=== PATIENT | female | born 1970 | race Caucasian/White ===

== ENCOUNTER 2020-05-03 14:39 | Emergency (ER) | payer BC ==
--- OUTSIDE RECORDS SUMMARY | 2020-05-03 14:42 | XMS REPORT | Continuity of Care Document ---
:1970 Author Organization [facility] t Address [address] [place] [address] Care Team Providers Name Role Phone Jacoby GARNER Primary Care Physician Jasson GARNER, R. Attending Clinician Monserrat GARNER Attending Clinician Angie GARNER Attending Clinician Payers Payer Name Policy Type Policy Effective Date Expiration Date Sour ce Number [id number] CHOICE [id number] 2015 [place] PPO/FEDERAL 00:00:00 Islam EMPL [id number] 2015-Pres entPPO Problems Condition Condition Condition Status Onset Resolution Last Treating Co mments Source Name Details Category Date Date Treatment Clinician Date Trochanter Trochanter Disease Active H jacqueston ic ic 03-11 [facility] tendinitis tendinitis 00:00: st 00 Skin rash Skin rash Disease Active Jovany ston 03-11 Methodi 00:00: st 00 FH: FH: Disease Active [place] hypothyroi hypothyroi 4-11 Me [facility] dism dism 00:00: st 00 SLE SLE Disease Active [place] (systemic (systemic 2-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 00:00: st erythemato erythemato 00 raina) raina) Long-term Long-term Disease Active Jovany ston use of use of 10-01 [facility] Plaquenil Plaquenil 00:00: st 00 Vidya' Vidya' Disease Active H cesia s s -24 [facility] thyroiditi thyroiditi 00:00: st s s 00 SOB SOB Disease Active [place] (shortness (shortness 1-10 Me th[place] of breath) of breath) 00:00: st 00 Essential Essential Disease Active Jovany ston hypertensi hypertensi 1-10 Me [facility] on on 00:00: st 00 Palpitatio Palpitatio Disease Active H cesia n n 1-10 Methodi 00:00: st 00 Paresthesi Paresthesi Disease Active 2015-08 H cesia a a 09-11 Methodi 00:00: st 00 Arthralgia Arthralgia Disease Active 2015-08 H jacqueston of both of both 09-11 [facility] hands hands 00:00: st 00 Raynaud's Raynaud's Disease Active 2015-08 Jovany ston phenomenon phenomenon 2- Me thodi without without 00:00: st gangrene gangrene 00 Sicca Sicca Disease Active 2015-08 [place] syndrome syndrome 09-11 Method i 00:00: st 00 Rash Rash Disease Active 2015-08 [place] 09-11 Methodi 00:00: st 00 Muscle Muscle Disease Active [place] weakness weakness Method i st Myopathy Myopathy Disease Active st Allergies, Adverse Reactions, Alerts Allergy Allergy Status Severity Reaction(s) Onset Inactive Treating Comm ents Source Name Type Date Date Clinician Joce Propensi Active 2015-08 [place] Inhibito ty to 09-11 Methodi rs adverse 00:00: st reaction 00 s to drug Arb-Karen Propensi Active 2015-08 [facility] to 09-11 Methodi Receptor adverse 00:00: st Antagoni reaction 00 st s to drug Family History Family Member Diagnosis Comments Start Date Stop Date Source Paternal grandmother Gait disorder H cesia Islam Social History Social Habit Start Date Stop Date Quantity Comments Source Sex Assigned At [facility] ethodist Tobacco use and 2019-07-14 2019-07-14 Never used [facility] ethodist exposure 00:00:00 00:00:00 Alcohol intake 2019-07-14 2019-07-14 Current drinker [place] [facility] 00:00:00 00:00:00 of alcohol (finding) Alcohol Comment 2016-07-11 2016-07-11 once every 2 [place] Islam 00:00:00 00:00:00 months Smoking Status Start Date Stop Date Source Current every day smoker 2019-07-14 00:00:00 Jovany mcconnell Islam Medications Ordered Filled Start Stop Current Ordering Indication Dosage Frequency Signature Comments Components Source Medication Medication Date Date Medication? Clinician (SIG) Name Name rosuvastati Yes Hyperlipide TAKE 1 [place] n (CRESTOR) 6-09 bennett, TABLET BY hodi 10 mg 00:00: unspecified MOUTH st tablet 00 hyperlipide DAILY bennett type hydroxychlo Yes Paresthesia TAKE 2 [place] roquine 3-30 TABLETS BY Method i (PLAQUENIL) 00:00: MOUTH st 200 mg 00 DAILY tablet rosuvastati 2020- No Hyperlipide TAKE 1 [place] n (CRESTOR) 3-16 06-09 bennett, TABLET BY Me thodi 10 MG 00:00: 00:[address] tablet 00 :00 hyperlipide DAILY bennett type hydroxychlo 2020- No Paresthesia TAKE 2 [place] roquine 3-16 03-30 TABLETS(40 Metho di (PLAQUENIL) 00:00: 00:00 0 MG) BY s t 200 mg 00 :00 MOUTH tablet DAILY hydroxychlo 2018-08 2020- No Paresthesia TAKE 2 [place] roquine 1-26 03-16 TABLETS(40 Metho di (PLAQUENIL) 00:00: 00:00 0 MG) BY s t 200 mg 00 :00 MOUTH tablet DAILY rosuvastati 2018-08 2020- No Hyperlipide TAKE 1 [place] n (CRESTOR) 1-25 03-16 bennett, TABLET BY Me thodi 10 MG 00:00: 00:[address] tablet 00 :00 hyperlipide DAILY bennett type nebivolol 2018-08 2019- No 2.5mg Q24H Take 2.5 [place] (BYSTOLIC) 1-05 11-05 mg by Methodi 2.5 MG 14:28: 00:[address] tablet 39 :00 daily as needed. LORAZepam 2018-08 Yes .5mg Q6H Take 0.5 [place] (ATIVAN) 1-05 mg by Methodi 0.5 MG 14:04: mouth st tablet 08 every 6 (six) hours as needed. Prn for anxiety omega 2018-08 Yes 1{tbl} Take 1 [place] 3-dha-epa-f 1-05 tablet by Met zuñiga charlene oil 14:04: mouth as st 120-180-600 08 needed. mg capsule cholecalcif 2018-08 Yes 2000U QD Take 2,000 [place] renetta, 1-05 Units by Methodi vitamin D3, 14:04: mouth st (VITAMIN 08 daily. D3) 2,000 unit capsule capsule B complex 2018-08 Yes QD Take by [place] on with 1-05 mouth Methodi C#20-folic 14:04: daily. st acid 1 mg 08 capsule TURMERIC 2018-08 Yes Take by Olivier hong ROOT 1-05 mouth Methodi EXTRACT 14:04: daily. st ORAL 08 ASCORBATE 2018-08 Yes Take by [place] on CALCIUM 1-05 mouth Methodi (VITAMIN C 14:04: daily. st ORAL) 08 MAGNESIUM 2018-08 Yes Take by [place] on CITRATE 1-05 mouth Methodi ORAL 14:04: daily. st 08 nebivolol 2018-08 Yes 5mg QD [facility] -[facility] tablet (5 Meth donal 5 MG tablet 00:00: mg total) s t 00 by mouth daily. hydroxychlo 2018- No Paresthesia TAKE 2 [place] roquine 04-05-25 TABLETS(40 Metho di (PLAQUENIL) 00:00: 00:00 0 MG) BY s t 200 mg 00 :00 MOUTH tablet DAILY rosuvastati 2018- No Hyperlipide TAKE 1 [place] n (CRESTOR) 04-05- bennett, TABLET BY [place] alireza 10 MG 00:00: 00:[address] tablet 00 :00 hyperlipide DAILY bennett type Vital Signs Vital Name Observation Time Observation Value Comments Source Systolic blood 2019-07-14 14:16:00 143 mm[Hg] Olivier hong Islam pressure Diastolic blood 2019-07-14 14:16:00 86 mm[Hg] [place] Islam pressure Heart rate 2019-07-14 14:16:00 88 /min Neo Sheriff Body weight 2019-07-14 14:16:00 88.451 kg Neo Sheriff BMI 2019-07-14 14:16:00 32.45 kg/m2 Neo Sheriff Body height 2019-06-15 14:03:00 165.1 cm Neo Sheriff Procedures Procedure Date / Time Performed Performing Clinician [facility] e ECG 12-LEAD 2019-06-15 14:04:15 Gregorio Spaulding odbrooke Plan of Care Planned Activity Planned Date Details Comments Source Future Scheduled 2020-04-11 INFLUENZA VACCINE [place] Islam Test 00:00:00 [code = INFLUENZA VACCINE] Future Scheduled 1993-02-19 Screening for Neo Me thodist Test 00:00:00 malignant neoplasm of cervix (procedure) [code = 374367740] Results Test Description Test Time Test Comments Results Result Comments Source ECG 12 lead 2019-06-15 15:48:37 Test Item Value Reference Range Interpretation Comme nts Ventricular rate (test code = 253) 77 Atrial rate (test code = 255) 77 AR interval (test code = 266) 146 QRSD interval (test code = 260) 100 QT interval (test code = 264) 392 QTC interval (test code = 265) 443 P axis 1 (test code = 267) 67 QRS axis 1 (test code = 268) 77 T wave axis (test code = 270) 53 EKG impression (test code = 273) Normal sinus rhythm-Normal ECG-In automated comparison with ECG of 02-SEP-2017 13:09,-No significant change was found- Neo Sheriff
--- OUTSIDE RECORDS SUMMARY | 2020-05-03 14:42 | XMS REPORT | Clinical Summary ---
:1970 Author Organization [facility] Address [address] [place] [address] Care Team Providers Name Role Phone MD Jacoby Primary Care Provider Allergies Active Allergy Reactions Severity Noted Date Comments Joce Inhibitors 07/11/2016 Arb-Angiotensin Receptor Antagonist 07/11 Medications Medication Sig Dispensed Refills Start End Date Status Date LORAZepam (ATIVAN) 0.5 Take 0.5 mg 0 Active MG tablet by mouth every 6 (six) hours as needed. Prn for anxiety omega 5-bge-aud-fish Take 1 0 Active oil 120-180-600 mg tablet by capsule mouth as needed. cholecalciferol, Take 2,000 0 Ac tive vitamin D3, (VITAMIN Units by D3) 2,000 unit capsule mouth capsule daily. B complex with Take by 0 Activ e C#20-folic acid 1 mg mouth capsule daily. TURMERIC ROOT EXTRACT Take by 0 Active ORAL mouth daily. ASCORBATE CALCIUM Take by 0 Ac tive (VITAMIN C ORAL) mouth daily. MAGNESIUM CITRATE ORAL Take by 0 Active mouth daily. nebivolol (BYSTOLIC) 5 Take 1 90 tablet 3 Active MG tablet tablet (5 9 mg total) by mouth daily. hydroxychloroquine TAKE 2 180 tablet 0 Active (PLAQUENIL) 200 mg TABLETS BY 0 tabletIndications: MOUTH DAILY Other systemic lupus erythematosus with other organ involvement (HCC), Raynaud's phenomenon without gangrene, Long-term use of Plaquenil, Paresthesia rosuvastatin (CRESTOR) TAKE 1 90 tablet 0 Active 10 mg TABLET BY 0 tabletIndications: MOUTH DAILY Hyperlipidemia, unspecified hyperlipidemia type nebivolol (BYSTOLIC) Take 2.5 mg 0 0 Discontinued 2.5 MG tablet by mouth 19 (Formu abundio daily as change) needed. hydroxychloroquine TAKE 2 180 tablet 0 07/05/20 Discontinued (PLAQUENIL) 200 mg TABLETS(400 9 19 (Reorder) tabletIndications: MG) BY Other systemic lupus MOUTH DAILY erythematosus with other organ involvement (HCC), Raynaud's phenomenon without gangrene, Long-term use of Plaquenil, Paresthesia rosuvastatin (CRESTOR) TAKE 1 90 tablet 0 0 Discontinued 10 MG TABLET BY 9 19 (Reorder) tabletIndications: MOUTH DAILY Hyperlipidemia, unspecified hyperlipidemia type rosuvastatin (CRESTOR) TAKE 1 90 tablet 0 0 Discontinued 10 MG TABLET BY 9 20 tabletIndications: MOUTH DAILY Hyperlipidemia, unspecified hyperlipidemia type hydroxychloroquine TAKE 2 180 tablet 0 10/25/19 Discontinued (PLAQUENIL) 200 mg TABLETS(400 9 20 tabletIndications: MG) BY Other systemic lupus MOUTH DAILY erythematosus with other organ involvement (HCC), Raynaud's phenomenon without gangrene, Long-term use of Plaquenil, Paresthesia hydroxychloroquine TAKE 2 180 tablet 0 11/08/19 Discontinued (PLAQUENIL) 200 mg TABLETS(400 0 20 tabletIndications: MG) BY Other systemic lupus MOUTH DAILY erythematosus with other organ involvement (HCC), Raynaud's phenomenon without gangrene, Long-term use of Plaquenil, Paresthesia rosuvastatin (CRESTOR) TAKE 1 90 tablet 0 0 Discontinued 10 MG TABLET BY 0 20 tabletIndications: MOUTH DAILY Hyperlipidemia, unspecified hyperlipidemia type Active Problems Problem Noted Date Trochanteric tendinitis 03/11/2017 Skin rash 03/11/2017 FH: hypothyroidism 11/19/2016 SLE (systemic lupus erythematosus) 10/01/2016 Long-term use of Plaquenil 10/01/2016 Vidya's thyroiditis 09/03/2016 SOB (shortness of breath) 08/20/2016 Essential hypertension 08/20/2016 Palpitation 08/20/2016 Paresthesia 07/11/2016 Arthralgia of both hands 07/11/2016 Raynaud's phenomenon without gangrene 07/11/2016 Sicca syndrome 07/11/2016 Rash 07/11/2016 Muscle weakness Myopathy Encounters Date Type Specialty Care Team Description 01/18/2020 Refill Cardiology Gregorio Spaulding MD Med Refi ll 11/05/2019 Refill Rheumatology Sangeetha German MD Other syste josette lupus erythematosus with other organ involvement (HCC); Raynaud's pheno blanche without gangrene; Long-term use o f Plaquenil; Paresthesia 10/25/2019 Refill Cardiology Gregorio Spaulding MD Med Refi ll 10/25/2019 Refill Rheumatology Sangeetha German MD Other syste josette lupus erythematosus with other organ involvement (HCC); Raynaud's pheno blanche without gangrene; Long-term use o f Plaquenil; Paresthesia 07/14/2019 Office Visit Neurology Yahaira Adams MD Numbness and tingling sensation of skin (Primary Dx); Anxiety with so matization 07/05/2019 Refill Rheumatology Sangeetha German MD Other syste josette lupus erythematosus with other organ involvement (HCC); Raynaud's pheno blanche without gangrene; Long-term use o f Plaquenil; Paresthesia 07/05/2019 Refill Cardiology Gregorio Spaulding MD Med Refi ll 06/15/2019 Office Visit Cardiology Gregorio Spaulding MD [facility] hypertension (Primary Dx); Palpitation after 05/03/2019 Family History Medical History Relation Name Comments Gait disorder Paternal Grandmother Relation Name Status Comments Paternal Grandmother Social History Tobacco Use Types Packs/Day Years Used Date Current Every Day Smoker Smokeless Tobacco: Never Used Alcohol Use Drinks/Week oz/Week Comments Yes once every Fri Sex Assigned at Date Recorded Not on file Last Filed Vital Signs Vital Sign Reading Time Taken Comments Blood Pressure 143/86 07/14/2019 2:16 PM CMM TECHNICIAN Pulse 88 07/14/2019 2:16 PM CMM TECHNICIAN Temperature - - Respiratory Rate - - Oxygen Saturation - - Inhaled Oxygen Concentration - - Weight 88.5 kg (195 lb) 07/14/2019 2:16 PM CMM TECHNICIAN Height 165.1 cm (5' 5") 06/15/2019 2:03 PM CMM TECHNICIAN Body Mass Index 32.45 06/15/2019 2:03 PM CMM TECHNICIAN Plan of Treatment Health Maintenance Due Date Last Done Comments CERVICAL CANCER SCREENING 02/19/1993 INFLUENZA VACCINE 04/11/2020 Procedures Procedure Name Priority Date/Time Associated Diagnosis Comme nts ECG 12-LEAD Routine 06/15/2019 2:04 PM Essential hypertensio n Results for this CMM TECHNICIAN procedure are i n the results section. after 05/03/2019 Results ECG 12 lead (06/15/2019 2:04 PM CMM TECHNICIAN) Pathologist Sig nature Ventricular rate 77 [facility] Atrial rate 77 [facility] OR interval 146 [facility] QRSD interval 100 [facility] QT interval 392 [facility] QTC interval 443 [facility] P axis 1 67 [facility] QRS axis 1 77 [facility] T wave axis 53 [facility] EKG impression Normal sinus [facility] rhythm-Normal ECG-In automated comparison with ECG of 02-SEP-2017 13:09,-No significant change was found- Specimen Narrative Performed At This result has an attachment that is no t available. Performing Organization Address City/State/[facility] Code Phon e Number [facility] MUSE [address] [place] [address] after 05/03/2019 Advance Directives For more information, please contact: [phone] Type Date Recorded Patient Physician Assistant Explanati on Advance Directives, Living Will and Medical Power of Finger Lift Operator
--- NOTE | 2020-05-03 15:43 | RAD REPORT ---
EXAM DESCRIPTION: RAD - Chest Single View - 05/03/2020 3:37 pm CLINICAL HISTORY: back pain;Chest pain Chest pain. COMPARISON: Chest Pa And Lat (2 Views) dated 09/02/2016; Chest Single View dated 01/28/2016; CHEST SIN GLE VIEW dated 04/30/2015; CHEST PA AND LAT 2 VIEW dated 04/16/2012 FINDINGS: Portable technique limits examination quality. The lungs are grossly clear. The heart is normal in size. No displaced fractures. IMPRESSION: No acute intrathoracic process suspected.
[2020-05-03 15:45] LABS: Absolute Lymphocytes (CBC) 1.3 K/uL (0.7-4.9); Basophils % 1.2 % (0-1.3); Hematocrit 44.6 % (36.0-45.0); Lymphocytes % 22.2 % (15.3-44.8); MPV 6.7 fL (7.6-11.3); RBC Red Blood Cell Count 5.16 M/uL (3.86-4.86)
[2020-05-03 16:02] LABS: ALT/SGPT 25 U/L (12-78); AST/SGOT 13 U/L (15-37); Alkaline Phosphatase 66 U/L (45-117); BUN Blood Urea Nitrogen 13 mg/dL (7-18); Bicarbonate 26 mmol/L (21-32); Bilirubin Direct 0.1 mg/dL (0-0.2); Bilirubin Total 0.3 mg/dL (0.2-1.0); Glucose Level 93 mg/dL (74-106); Magnesium 2.4 mg/dL (1.8-2.4); NT PRO-BNP 48 pg/mL (<125); Potassium 3.9 mmol/L (3.5-5.1); Protein, Total 7.7 g/dL (6.4-8.2); Sodium Level 140 mmol/L (136-145); Troponin (Emerg Dept Use Only) < 0.02 ng/mL (0.0-0.045)
--- NOTE | 2020-05-03 17:26 | ER ---
Nurse's Notes [facility] Name: Livier Wilkins Age: 50 yrs Sex: Female : 1970 Arrival Date: 05/03/2020 Time: 14:41 Bed 15 Private MD: Diagnosis: Chest pain, unspecified;Upper back pain Presentation: 05/03 14:51 Chief complaint: Patient states: Mid back pain, between shoulder blades, this morning ca1 upon waking up. An hour after pain was on chest, mid sternal and has progressed since 1000. Initially thought pain was just anxiety, took Ativan 0.5mg, no relief of chest pain. Pain is more with movement. Denies SOB with CP. Denies cough. Denies injury to chest and back. Denies Hx of heart problems. Coronavirus screen: Client denies travel out of the [place] in the last 14 days. At this time, the client does not indicate any symptoms associated with coronavirus-19. Ebola Screen: Patient negative for fever greater than or equal to 101.5 degrees Fahrenheit, and additional compatible Ebola Virus Disease symptoms Patient denies exposure to infectious person. Patient denies travel to an Ebola-affected area in the 21 days before illness onset. No symptoms or risks identified at this time. Initial Sepsis Screen: Does the patient meet any 2 criteria? No. Patient's initial sepsis screen is negative. Does the patient have a suspected source of infection? No. Patient's initial sepsis screen is negative. Risk Assessment: Do you want to hurt yourself or someone else? Patient reports no desire to harm self or others. Onset of symptoms was May 03, 2020. 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 - Social history:: Smoking status: Patient reports the use of cigarette tobacco products, smokes one pack cigarettes per day. Screenin:54 Abuse screen: Denies threats or abuse. Nutritional screening: No deficits noted. ll2 Tuberculosis screening: No symptoms or risk factors identified. Fall Risk None identified. Assessment: 14:52 General: Appears in no apparent distress. Behavior is calm, cooperative, appropriate ll2 for age. Pain: Complains of pain in mid-sternal area Pain does not radiate. Pain currently is 3 out of 10 on a pain scale. Quality of pain is described as pressure, Pain began 4 hours ago. Neuro: Level of Consciousness is awake, alert, obeys commands, Oriented to person, place, time, situation. Cardiovascular: Heart tones present Capillary refill < 3 seconds Patient's skin is warm and dry. Respiratory: Airway is patent Respiratory effort is even, unlabored, Respiratory pattern is regular, symmetrical. GI: No signs and/or symptoms were reported involving the gastrointestinal system. : No signs and/or symptoms were reported regarding the genitourinary system. EENT: No signs and/or symptoms were reported regarding the EENT system. Derm: Skin is intact, is healthy with good turgor, Skin is dry, Skin is pink, warm \T\ dry. Skin temperature is warm. Musculoskeletal: Circulation, motion, and sensation intact. Range of motion: intact in all extremities. Vital Signs: 14:51 BP 151 / 97; Pulse 93; Resp 17 S; Pulse Ox 97% on R/A; Weight 88.45 kg (R); Height 5 ca1 ft. 6 in. (167.64 cm) (R); 15:48 BP 141 / 89; Pulse 89; Resp 16; Pulse Ox 99% on R/A; ll2 17:23 BP 129 / 84; Pulse 73; Resp 19; Pulse Ox 98% on R/A; jd3 14:51 Body Mass Index 31.47 (88.45 kg, 167.64 cm) ca1 ED Course: 14:41 Patient arrived in ED. ag5 14:44 Shivani Tucker RN is Primary Nurse. ll2 14:54 Sagar Macdonald MD is Attending Physician. kdr 14:54 Triage completed. ca1 14:54 Arm band placed on left wrist. ll2 14:54 Patient has correct armband on for positive identification. Call light in reach. ll2 15:09 EKG done, by ED staff. ll2 15:29 Inserted saline lock: 20 gauge in left antecubital area, using aseptic technique. Blood dh4 collected. 15:37 XRAY Chest (1 view) In Process Unspecified. EDMS 16:45 Troponin (emerg Dept Use Only) Sent. ll2 17:37 No provider procedures requiring assistance completed. IV discontinued, intact, ss bleeding controlled, No redness/swelling at site. Pressure dressing applied. Administered Medications: No medications were administered Outcome: 17:25 Discharge ordered by . kdr 17:37 Discharged to home ambulatory. ss 17:37 Condition: good 17:37 Discharge instructions given to patient, family, Instructed on discharge instructions, follow up and referral plans. medication usage, Demonstrated understanding of instructions, follow-up care, medications, Prescriptions given X 1. 17:37 Patient left the ED. ss Signatures: Dispatcher [employer] EDMS Sagar Macdonald MD MD kdr Smirch, Shelby, RN RN Zelalem García RN RN Maida Bender RN RN ca1 [place], Ajare Sarbjit [place] 4 Shivani Tucker RN RN ll2
--- NOTE | 2020-05-03 17:26 | EDPHYS ---
Physician Documentation [facility] Name: Livier Wilkins Age: 50 yrs Sex: Female : 1970 Arrival Date: 05/03/2020 Time: 14:41 Bed 15 Private MD: ED Physician Sagar Macdonald HPI: 05/03 20:11 This 50 yrs old Female presents to ER via Ambulatory with complaints of Back kdr Pain, Chest Pain. 20:12 The patient awoke this morning with pain between her shoulder blades. It was mild but kdr tolerable. Then about 10:00 PM she noted she had pain anteriorly on her chest. . Onset: The symptoms/episode began/occurred this morning. Severity of symptoms: At their worst the symptoms were mild moderate just prior to arrival, this morning, in the emergency department the symptoms have improved mildly. The patient has not experienced similar symptoms in the past. The patient has not recently seen a physician. The patient has had anxiety in the past but feels this is different. 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 - Social history:: Smoking status: Patient reports the use of cigarette tobacco products, smokes one pack cigarettes per day. ROS: 20:12 Constitutional: Negative for fever, chills, and weight loss, Eyes: Negative for injury, kdr pain, redness, and discharge, ENT: Negative for injury, pain, and discharge, Neck: Negative for injury, pain, and swelling, Respiratory: Negative for shortness of breath, cough, wheezing, and pleuritic chest pain, Abdomen/GI: Negative for abdominal pain, nausea, vomiting, diarrhea, and constipation, : Negative for injury, bleeding, discharge, and swelling, MS/Extremity: Negative for injury and deformity, Skin: Negative for injury, rash, and discoloration, Neuro: Negative for headache, weakness, numbness, tingling, and seizure activity. Psych: Negative for depression, anxiety, suicide ideation, homicidal ideation, and hallucinations, Allergy/Immunology: Negative for hives, rash, and allergies, Endocrine: Negative for neck swelling, polydipsia, polyuria, polyphagia, and marked weight changes, Hematologic/Lymphatic: Negative for swollen nodes, abnormal bleeding, and unusual bruising. 20:12 Cardiovascular: Positive for chest pain, Negative for edema, orthopnea, palpitations, paroxysmal nocturnal dyspnea, acute changes. 20:12 Back: Positive for pain with movement, Negative for decreased range of motion, pain at rest, radiated pain. Exam: 20:12 Constitutional: This is a well developed, well nourished patient who is awake, alert, kdr and in no acute distress. Head/Face: Normocephalic, atraumatic. Eyes: Pupils equal round and reactive to light, extra-ocular motions intact. Lids and lashes normal. Conjunctiva and sclera are non-icteric and not injected. Cornea within normal limits. Periorbital areas with no swelling, redness, or edema. Neck: Trachea midline, no thyromegaly or masses palpated, and no cervical lymphadenopathy. Supple, full range of motion without nuchal rigidity, or vertebral point tenderness. No Meningismus. Chest/axilla: Normal chest wall appearance and motion. Nontender with no deformity. No lesions are appreciated. Cardiovascular: Regular rate and rhythm with a normal S1 and S2. No gallops, murmurs, or rubs. Normal PMI, no JVD. No pulse deficits. Respiratory: Lungs have equal breath sounds bilaterally, clear to auscultation and percussion. No rales, rhonchi or wheezes noted. No increased work of breathing, no retractions or nasal flaring. Abdomen/GI: Soft, non-tender, with normal bowel sounds. No distension or tympany. No guarding or rebound. No evidence of tenderness throughout. Back: No spinal tenderness. No costovertebral tenderness. Full range of motion. Skin: Warm, dry with normal turgor. Normal color with no rashes, no lesions, and no evidence of cellulitis. MS/ Extremity: Pulses equal, no cyanosis. Neurovascular intact. Full, normal range of motion. Neuro: Awake and alert, GCS 15, oriented to person, place, time, and situation. Cranial nerves II-XII grossly intact. Motor strength 5/5 in all extremities. Sensory grossly intact. Cerebellar exam normal. Normal gait. Psych: Awake, alert, with orientation to person, place and time. Behavior, mood, and affect are within normal limits. 20:30 ECG was reviewed by the Attending Physician. kdr Vital Signs: 14:51 BP 151 / 97; Pulse 93; Resp 17 S; Pulse Ox 97% on R/A; Weight 88.45 kg (R); Height 5 ca1 ft. 6 in. (167.64 cm) (R); 15:48 BP 141 / 89; Pulse 89; Resp 16; Pulse Ox 99% on R/A; ll2 17:23 BP 129 / 84; Pulse 73; Resp 19; Pulse Ox 98% on R/A; jd3 14:51 Body Mass Index 31.47 (88.45 kg, 167.64 cm) ca1 MDM: 17:25 Patient medically screened. kdr 20:12 Data reviewed: vital signs, nurses notes, lab test result(s), radiologic studies. kdr Counseling: I had a detailed discussion with the patient and/or guardian regarding: the historical points, exam findings, and any diagnostic results supporting the discharge/admit diagnosis, lab results, radiology results, the need for outpatient follow up. ED course: The patient had improved at the time of discharge. She indicated that the pain was down from a 6 to a 4 or five though she did not feel that she needed any pain medication. She was happy with the care provided and the plan for discharge and follow-up. 05/03 15:16 Order name: Basic Metabolic Panel; Complete Time: 16: [facility] 05/03 15:16 Order name: CBC with Diff; Complete Time: : [facility] 05/03 15:16 Order name: LFT's; Complete Time: 16: [facility] 05/03 15:16 Order name: Magnesium; Complete Time: 16:27 [facility] 05/03 15:16 Order name: NT PRO-BNP; Complete Time: 16:27 [facility] 05/03 15:16 Order name: Troponin (emerg Dept Use Only); Complete Time: 16: [facility] 05/03 15:02 Order name: EKG - Nurse/Tech; Complete Time: 15:02 ll2 05/03 15:16 Order name: XRAY Chest (1 view); Complete Time: 16:27 [facility] 05/03 15:16 Order name: EKG; Complete Time: 15:17 [facility] 05/03 15:16 Order name: Cardiac monitoring; Complete Time: 15:16 [facility] 05/03 15:16 Order name: IV Saline Lock; Complete Time: 16: [facility] 05/03 15:16 Order name: Labs collected and sent; Complete Time: 16: [facility] 05/03 16:27 Order name: Troponin (emerg Dept Use Only); Complete Time: 17: [facility] 05/03 15:16 Order name: O2 Per Protocol; Complete Time: 15:16 [facility] 05/03 15:16 Order name: O2 Sat Monitoring; Complete Time: 15:16 [facility] EC:30 Rate is 94 beats/min. Rhythm is regular, Normal Sinus Rhythm with No ectopy. QRS [place] kdr is Normal. AL interval is normal. QRS interval is normal. QT interval is normal. No Q waves. Clinical impression: Normal ECG. Administered Medications: No medications were administered Disposition: 05/03/20 17:25 Discharged to Home. Impression: Chest pain, unspecified, Upper back pain. - Condition is Stable. - Discharge Instructions: Pain Without a Known Cause, Nonspecific Chest Pain, [id number]. - Prescriptions for Tramadol 50 mg Oral Tablet - take 1 tablet by ORAL route every 8 hours as needed; 12 tablet. - Medication Reconciliation Form, Thank You Letter form. - Follow up: Private Physician; When: 2 - 3 days; Reason: If symptoms return, Further diagnostic work-up, Recheck today's complaints, Continuance of care, Re-evaluation by your physician. - Problem is new. - Symptoms have improved. Signatures: Dispatcher [employer] EDKY Sagar Macdonald MD MD [facility] Smita Rolon RN RN ss Maida Carolina RN RN [facility] Shivani Tucker RN RN ll2 Corrections: (The following items were deleted from the chart) 17:37 17:25 05/03/2020 17:25 Discharged to Home. Impression: Chest pain, unspecified; Upper ss back pain. Condition is Stable. Forms are Medication Reconciliation Form, Thank You Letter, Antibiotic Education, Prescription Opioid Use. Follow up: Private Physician; When: 2 - 3 days; Reason: If symptoms return, Further diagnostic work-up, Recheck today's complaints, Continuance of care, Re-evaluation by your physician. Problem is new. Symptoms have improved. kdr
[2020-05-03 18:00] VITALS: BP 129/84; O2SAT 98
--- NOTE | 2020-05-04 08:45 | EKG ---
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
== END 2020-05-03 17:37 | disposition home or self-care (01) ==
LOC: ER 14:39
DX: M54.89 Other dorsalgia (principal); F17.210 Nicotine dependence, cigarettes, uncomplicated; I10 Essential (primary) hypertension; Z98.82 Breast implant status; Z88.2 Allergy status to sulfonamides; Z88.8 Allergy status to other drugs, medicaments and biological substances
CPT/HCPCS: 36415; 71045; 80048; 80076; 83735; 83880; 84484; 85025; 93005; 99284